=== PATIENT | female | born 1965 | race Caucasian/White ===

== ENCOUNTER → 2018-11-25 20:10 | Outpatient (CLI) | payer OTHER, SELFPAY ==
[2018-11-25 13:53] VITALS: BMI 26.2
== END ==
PROVIDERS: Visit Provider Physician Assistant Medical
DX: J02.9 Acute pharyngitis, unspecified (principal)
CPT/HCPCS: 87081

== ENCOUNTER → 2019-03-01 14:43 | Outpatient (CLI) | payer OTHER, SELFPAY ==
[2019-03-01 14:15] VITALS: BMI 26.2
[2019-03-01 14:45] LABS: Mucous, Urine 0 SEEN /hpf (<or=2+); Squamous Epithelial Cells - UA 0 SEEN /hpf (5-10)
[2019-03-01 16:00] LABS: Color, Urine Brown (Yellow); Glucose, Dipstick Normal (Normal); Ketone-Dipstick 15 mg/dl (Negative); Leukocyte Esterase-Dipstick 500 /ul (Negative); Nitrite-Dipstick Positive (Negative); Occult Blood-Urine 250 /ul (Negative); Protein-Dipstick 100 mg/dl (Negative); Specific Gravity, Urine 1.025 (1.002-1.030); Urine Clarity Cloudy (Clear); Urine Urobilinogen 1 mg/dl (Normal)
[2019-03-01 16:02] LABS: Urine Bilirubin Dipstick 1 mg/dL (Negative)
[2019-03-01 16:12] LABS: Red Blood Cells-Urine > 100 SEEN /hpf (0-5)
[2019-03-01 16:13] LABS: Bacteria 1+ /hpf (None Seen); White Blood Cells 50-100 SEEN /hpf (0-5)
== END ==
PROVIDERS: Visit Provider Physician Assistant
DX: R30.0 Dysuria (principal)
CPT/HCPCS: 81001; 87086; 87088; 87186

== ENCOUNTER → 2019-03-06 13:46 | Outpatient (CLI) | payer OTHER, SELFPAY ==
[2019-03-06 11:02] VITALS: BMI 26.2
[2019-03-06 14:19] LABS: Bacteria 0 SEEN /hpf (None Seen); Mucous, Urine 0 SEEN /hpf (<or=2+)
[2019-03-06 15:06] LABS: Color, Urine Yellow (Yellow); Glucose, Dipstick Normal (Normal); Ketone-Dipstick Negative (Negative); Leukocyte Esterase-Dipstick 25 /ul (Negative); Nitrite-Dipstick Negative (Negative); Occult Blood-Urine 25 /ul (Negative); Protein-Dipstick Negative (Negative); Urine Bilirubin Dipstick Negative (Negative); Urine Clarity Sl. Cloudy (Clear); Urine Urobilinogen Normal (Normal); Urine pH 6.5 (5.0 - 8.0)
[2019-03-06 15:12] LABS: Red Blood Cells-Urine 0-5 SEEN /hpf (0-5); Squamous Epithelial Cells - UA 0-5 SEEN /hpf (5-10); White Blood Cells 0-5 SEEN /hpf (0-5)
== END ==
PROVIDERS: Referring Provider Physician Assistant Surgical; Visit Provider Physician Assistant Surgical
DX: R10.9 Unspecified abdominal pain (principal)
CPT/HCPCS: 81001; 87086

== ENCOUNTER → 2019-10-11 13:02 | Outpatient (CLI) | payer OTHER, SELFPAY ==
[2019-07-30 16:55] VITALS: BMI 26.2
[2019-10-13 14:07] LABS: Age Gdln ACOG Testing 30-65 (.)
[2019-10-14 11:33] LABS: HPV APTIMA, High Risk Negative (Negative)
[2019-10-14 11:38] LABS: HPV Reflexed? YES, CHARGE PATIENT
== END ==
PROVIDERS: Visit Provider Obstetrics & Gynecology
DX: Z12.4 Encounter for screening for malignant neoplasm of cervix (principal)
CPT/HCPCS: 87624; 88175; G0145

== ENCOUNTER → 2019-10-29 16:27 | Outpatient (CLI) | payer OTHER, SELFPAY ==
[2019-07-30 16:55] VITALS: BMI 26.2
--- NOTE | 2019-10-29 16:30 | BI_ITS ---
MAMMOGRAPHY - BILATERAL SCREENING 3-D TOMOSYNTHESIS REASON FOR EXAM: Female, 54 years old. BILAT SCREENING - NO FAM HX - NO PREV SURG''S - PERTINENT HISTORY: No significant family history. TECHNIQUE: 2-D mammograms and 3-D Tomosynthesis of the breast (s) were performed. CAD was performed. COMPARISON: October 12, 2017. FINDINGS: The breast composition is heterogeneously dense that can obscure small breast masses. There is a 5.7 mm round nodule within the upper central right breast position 5.2 cm from the nipple based on the MLO views and position 4.1 cm from the nipple base on the right cc views. The margins appear well-defined except where they are obscured by adjacent fibroglandular tissue. Recommend further evaluation with sonographic characterization. The left breast appears stable and without evidence of malignancy mammographically. There are no suspicious microcalcifications. There are no secondary signs of malignancy. BI/SCREEN MAMM (CAD) W/SO BILAT IMPRESSION: Subcentimeter right breast nodule as above. Sonographic characterization highly recommended. ASSESSMENT CATEGORY: BIRADS Category 0: Incomplete. Need additional imaging evaluation as above. A letter regarding these results will be sent to the patient by the facility within 30 days. FOLLOW UP RECOMMENDATION: Ultrasound Recommended. (I) Approximately 10% of breast cancers are not detected by mammography. A normal mammogram should not delay biopsy of a clinically suspicious abnormality. Electronically Signed: Stanley Dillon MD at 8:42 EST , Service support ,
== END ==
PROVIDERS: Referring Provider Obstetrics & Gynecology; Visit Provider Obstetrics & Gynecology
DX: Z12.31 Encounter for screening mammogram for malignant neoplasm of breast (principal)
CPT/HCPCS: 77063; 77067

== ENCOUNTER → 2019-11-01 10:56 | Outpatient (CLI) | payer OTHER, SELFPAY ==
[2019-07-30 16:55] VITALS: BMI 26.2
--- NOTE | 2019-11-01 11:00 | US_ITS ---
STUDY: ULTRASOUND BREAST - RIGHT REASON FOR EXAM: Female, 54 years old. Abnormal right mammogram. TECHNIQUE: Axial and longitudinal images of the RIGHT breast were performed with a high resolution ultrasound transducer. # OF IMAGES: 46 COMPARISON: None. FINDINGS: RIGHT Breast: The upper outer quadrant and upper inner quadrant and retroareolar regions were sonographically evaluated utilizing various imaging planes. Multiple auto service representative static images and cine loops are submitted for interpretation and documentation. In the retroareolar region there are multiple moderately dilated ducts. No intraductal lesion is identified. No border-forming discrete/focal nodule or mass is identified. No fluid collection. US/Breast Limited Unilateral IMPRESSION: Dilated retroareolar ducts. No intraductal pathology identified. No border-forming discrete nodule or mass. No fluid collection. ASSESSMENT CATEGORY: BIRADS Category 3: Probably Benign - Short-Interval Follow-up Suggested. A letter regarding these results will be sent to the patient by the facility within 30 days. Recommendation: Recommend unilateral, short interval right mammography and right repeat sonography in 3-6 months. Electronically Signed: Stanley Dillon MD at 7:55 EST , Service support ,
== END ==
PROVIDERS: Referring Provider Obstetrics & Gynecology; Visit Provider Obstetrics & Gynecology
DX: R92.8 Other abnormal and inconclusive findings on diagnostic imaging of breast (principal)
CPT/HCPCS: 76642

== ENCOUNTER → 2020-08-28 15:47 | Outpatient (CLI) | payer OTHER, SELFPAY ==
[2020-08-28 14:59] VITALS: BMI 25.0
[2020-08-28 16:51] LABS: Absolute Lymphocyte Count 1.08 X10^3/uL (0.83-4.51); Absolute Neutrophil Count 4.1 X10^3/uL (2.0-7.7); Basophil# 0.05 X10^3/uL; Basophil% 0.9 % (0-1); Eosinophils% 1.7 % (0-5); Hematocrit 42.2 % (37-47); Hemoglobin 13.9 g/dL (12.0-15.0); Lymphocyte # 1.08 X10^3/ul (4.0); Lymphocyte % 18.4 % (19-41); Mean Corp Hgb Conc 32.9 g/dL (32-36); Mean Corpuscular Hgb 29.8 pg (27.0-32.0); Mean Corpuscular Volume 90.6 fL (81-99); Monocyte# 0.54 X10^3/uL; Monocyte% 9.2 % (0-10); NRBC Flagged by Analyzer 0 % (0-5); Neutrophil # 4.08 X10^3/uL (2.7-7.7); Neutrophil % 69.6 % (47-70); Platelet Count 271 K/mm3 (150-450); RBC Distribution Width CV 11.9 % (11.6-14.6); RBC Distribution Width SD 39.3 fl (35.1-43.9); Red Blood Count 4.66 M/mm3 (4.2-5.4); White Blood Count 5.9 K/mm3 (4.4-11.0)
[2020-08-28 17:11] LABS: ALB/GLOB Ratio 1.1 RATIO (0.9-2.4); AST(SGOT) 16 U/L (15-37); Alanine Aminotransfer ALT/SGPT 25 U/L (13-56); Albumin, Serum 3.7 g/dL (3.2-5.0); Alkaline Phosphatase 104 U/L (45-117); Anion Gap 5 (5-15); BUN 16 mg/dL (7-18); BUN/Creat Ratio 20.5 RATIO (10-20); Calcium,Total 9.3 mg/dL (8.5-10.1); Chloride 105 mmol/L (98-107); Cholesterol 193 mg/dL (200); Creatinine, Serum 0.78 mg/dL (0.55-1.02); EST Glomerular Filtration Rate 81 mL/min (>60); Est Glom Filt Rate - Afr Amer 98 mL/min (>60); Globulin 3.5 g/dL (2.2-4.2); Glucose 91 mg/dL (74-106); High Density Lipoprotein 87 mg/dL; Potassium 4.6 mmol/L (3.5-5.1); Protein, Total 7.2 g/dL (6.4-8.2); Sodium Level 140 mmol/L (136-145); Triglycerides 92 mg/dL; Very Low Density Lipoprotein 18 mg/dL (5-40)
== END ==
PROVIDERS: PCP Internal Medicine; Referring Provider Internal Medicine; Visit Provider Internal Medicine
DX: Z00.00 Encounter for general adult medical examination without abnormal findings (principal)
CPT/HCPCS: 36415; 80053; 80061; 85025

== ENCOUNTER → 2020-09-10 09:10 | Outpatient (CLI) | payer OTHER, SELFPAY ==
[2020-08-28 14:59] VITALS: BMI 25.0
--- NOTE | 2020-09-10 09:11 | US_ITS ---
STUDY: ULTRASOUND BREAST - RIGHT REASON FOR EXAM: Female, 55 years old. Pain in the right breast. TECHNIQUE: Axial and longitudinal images of the RIGHT breast were performed with a high resolution ultrasound transducer. # OF IMAGES: 68 COMPARISON: Comparison is made with prior mammogram done earlier in the day as well as prior sonogram of the right breast dated 11/01/2019. FINDINGS: RIGHT Breast: The entire right breast was examined by ultrasound. No sonographic abnormality is seen. US/Breast Complete Unilateral IMPRESSION: No sonographic abnormality is seen. ASSESSMENT CATEGORY: BIRADS Category 1: Negative. A letter regarding these results will be sent to the patient by the facility within 30 days. Electronically Signed: Raudel Avila, at 14:14 EST , Service support ,
--- NOTE | 2020-09-10 09:11 | BI_ITS ---
MAMMOGRAPHY - BILATERAL SCREENING REASON FOR EXAM: Female, 55 years old. Routine annual screening examination. PERTINENT HISTORY: Non-contributory. TECHNIQUE: Digital bilateral breast so (3D mammographic acquisition) in the CC and MLO projections. 2-D mediolateral oblique (MLO) and craniocaudad (CC) views of both breasts were obtained. CAD: Full Field Digital Mammography with Computer Added Detection was performed. COMPARISON: Comparison is made with prior study dated 10/29/2019 and 10/12/2017. FINDINGS: Breast Composition: The breasts are heterogeneously dense, which may obscure small masses. There are no dominant masses or suspicious calcifications. No other significant abnormalities are identified. There has been no significant change since the prior study. BI/SCREEN MAMM (CAD) W/SO BILAT IMPRESSION: Stable bilateral screening mammogram. Yearly follow-up mammogram recommended. (A) ASSESSMENT CATEGORY: BIRADS Category 1: Negative. A letter regarding these results will be sent to the patient by the facility within 30 days. Approximately 10% of breast cancers are not detected by mammography. A normal mammogram should not delay biopsy of a clinically suspicious abnormality. [id number] Electronically Signed: Raudel Avila, at 11:26 EST , Service support ,
== END ==
PROVIDERS: PCP Internal Medicine; Referring Provider Internal Medicine; Visit Provider Internal Medicine
DX: Z12.31 Encounter for screening mammogram for malignant neoplasm of breast (principal); R92.8 Other abnormal and inconclusive findings on diagnostic imaging of breast; N64.4 Mastodynia
CPT/HCPCS: 76641; 77063; 77067

== ENCOUNTER → 2020-12-02 14:04 | Outpatient (CLI) | payer OTHER, SELFPAY ==
[2020-08-28 14:59] VITALS: BMI 25.0
[2020-12-02 13:41] VITALS: BMI 24.7
--- NOTE | 2020-12-02 14:14 | CT_ITS ---
STUDY: LOW DOSE CT LUNG CANCER SCREENING REASON FOR EXAM: Female, 55 years old. Ex smoker x 2 years. 31 year smoker .5-1 pack a day RADIATION DOSAGE (If Supplied By Facility): CTDIvol = ( 2.01 ) mGy, DLP = ( 67.20 ) mGycm TECHNIQUE: No contrast was administered. Low dose technique was utilized (average mAS-38 and kVp 120). 1.25 mm axial source images with a slice interval of 1.25-mm were reconstructed in lung windows. 2.5 mm axial source images with a slice interval of 2.5-mm were reconstructed in lung windows. 5.0 mm axial source images with a slice interval of 5.0-mm were reconstructed in soft tissue windows. Nodule measured using lung windows on PACS and/or independent workstation with automated measurement of minimum and maximum diameter. Nodule measurement reported as average diameter rounded to the nearest whole number. Growth is defined as an increase ins size of greater than 1.5 mm. COMPARISON: None. NODULES: No suspicious nodule is seen. Emphysema: Hyperinflation. Minimal degree of emphysema. Endobronchial lesion: None Aorta: Unremarkable Coronary arteries: Unremarkable Heart: Unremarkable Pulmonary artery: Unremarkable CT/Low Dose CT Lung Screening IMPRESSION: Lung-RADS category 2 - Continue annual screening with LDCT in 12 months. IMPORTANT NOTES FOR USE: ACR Lung-RADS Version 1.0 Assessment Categories Release Date: February 25, 2014 Category: Coded 0-4 bases on nodule(s) with highest degree of suspicion. Negative screen is defined as categories 1 and 2; a positive screen is defined as categories 3 and 4. Category 3 and 4A nodules that are unchanged on interval CT should be coded as category 2, and individuals returned to screening in 12 months. Category 4X: Category 3 or 4 nodules with additional imaging findings that increase the suspicion of lung cancer, such as spiculation, GGN that doubles in size in 1 year, enlarged lymph notes, etc. Category Modifiers: S (significant finding unrelated to lung cancer) and C (prior history of treated lung cancer) may be added to the 0-4 Lung-RADS Electronically Signed: Raudel Avila MD at 14:30 EST , Service support ,
== END ==
PROVIDERS: PCP Internal Medicine; Referring Provider Nurse Practitioner Family; Visit Provider Nurse Practitioner Family
DX: Z12.2 Encounter for screening for malignant neoplasm of respiratory organs (principal); Z87.891 Personal history of nicotine dependence
CPT/HCPCS: 71271

== ENCOUNTER 2021-01-08 15:47 | Outpatient (RCR) | payer OTHER, SELFPAY ==
[2020-12-02 13:41] VITALS: BMI 24.7
[2021-01-08] MEDS: COVID-19 VACC, MRNA(PFIZER)/PF 30 MCG/0.3 ML SYRINGE IM (17:38)
[2021-01-29] MEDS: COVID-19 VACC, MRNA(PFIZER)/PF 30 MCG/0.3 ML SYRINGE IM (17:37)
== END 2021-04-07 23:59 ==
LOC: IMMUN 15:47
PROVIDERS: PCP Internal Medicine; Visit Provider Family Medicine
DX: Z23 Encounter for immunization (principal)
CPT/HCPCS: 0001A; 0002A; 91300

== ENCOUNTER → 2021-06-16 | Outpatient (CLI) | payer OTHER, SELFPAY ==
[2021-06-16 14:17] VITALS: BMI 24.7
[2021-06-16 17:59] LABS: Probe Check PASS; Specimen Processing Control PASS
== END | disposition home or self-care (01) ==
LOC: LABSPEC 14:33
PROVIDERS: PCP Internal Medicine; Visit Provider Nurse Practitioner Family
DX: J06.9 Acute upper respiratory infection, unspecified (principal)
CPT/HCPCS: 87635; U0005; U0003

== ENCOUNTER → 2022-03-23 | Outpatient (CLI) | payer OTHER, SELFPAY ==
--- NOTE | 2022-03-23 13:17 | CT_ITS ---
EXAM: CT CHEST, LUNG CANCER SCREENING WITHOUT INTRAVENOUS CONTRAST CLINICAL INDICATION: lung cancer screening -- 30 pk yr hx; asymptomatic; former smoker TECHNIQUE: Helically acquired images were obtained of the chest without intravenous contrast using low dose (LDCT) lung cancer screening protocol. This CT exam was performed using one or more of the following dose reduction techniques: automated exposure control, adjustment of the mA and/or kV according to patient size, and/or use of iterative reconstruction technique. This report was created using [employer] report generation technology. COMPARISON: 12/02/2020 FINDINGS: LUNGS AND PLEURAL SPACES: Diffuse centrilobular pulmonary emphysema again noted. No evidence of lung mass or suspicious pulmonary nodule. 4 mm nodule along the minor fissure again seen consistent with intrapulmonary lymph node. No pleural effusion or thickening. No pneumothorax. HEART: Unremarkable. Heart size is normal. No pericardial effusion. No significant coronary artery calcifications. MEDIASTINUM: Unremarkable. No mediastinal or hilar adenopathy. Esophagus is unremarkable. No hiatal hernia. THYROID: Unremarkable. No thyroid lesions. BONES/JOINTS: Unremarkable. No suspicious lytic or blastic abnormality. VASCULATURE: Unremarkable. Thoracic aorta is non-dilated. LYMPH NODES: Unremarkable. No enlarged lymph nodes. CT/Low Dose CT Lung Screening IMPRESSION: 1. Diffuse centrilobular pulmonary emphysema. 2. No evidence of lung mass or suspicious pulmonary nodule. 3. ACR Lung CT Screening Reporting T Data System (Lung-RADS) score: 2S - Benign Appearance or Behavior. Additional clinically significant or potentially clinically significant findings are described. Recommend continued annual screening with low-dose CT (LDCT) in 12 months. Electronically Signed: Alexis Johansen MD at 9:58 EDT ,
== END | disposition home or self-care (01) ==
LOC: CT 12:40
PROVIDERS: PCP Internal Medicine; Visit Provider Nurse Practitioner Family
DX: Z12.2 Encounter for screening for malignant neoplasm of respiratory organs (principal); Z87.891 Personal history of nicotine dependence
CPT/HCPCS: 71271

== ENCOUNTER → 2023-07-02 | Outpatient (CLI) | payer OTHER, SELFPAY ==
--- NOTE | 2023-07-02 07:35 | MRI_ITS ---
STUDY: MRI LEFT WRIST WITHOUT CONTRAST REASON FOR EXAM: Female, 58 years old. pain and hard calcification at the radial styloid TECHNIQUE: Standardized fat and water weighted pulse sequences were obtained in all 3 orthogonal planes. COMPARISON: Left hand and wrist x-rays dated March 29, 2023 FINDINGS: A small to moderate-sized 5 mm intraosseous cyst is present in the central to radial aspect of the lunate. No joint effusion is present. No visualized fractures or evidence of avascular necrosis. A small joint effusion is present in the distal radial ulnar joint. No visualized tear is more degeneration of the triangle fibrocartilage complex. Normal visualized distal radius and ulna. Normal distal radioulnar Articulation (DRUJ). Normal triangular fibrocartilaginous complex (TFCC). Normal remaining carpal bones. Normal radiocarpal, intercarpal and midcarpal articulations. Normal pisotriquetral articulation. Normal visualized interosseous scapholunate ligament. Normal visualized dorsal (extrinsic) ligaments. Normal visualized volar (extrinsic) ligaments. Normal extensor tendons. Minimal tenosynovitis is present in the first extensor compartment. Normal flexor tendons. Normal carpal tunnel with a normal median nerve. Normal carpometacarpal articulation of the thumb. Normal second through fifth carpometacarpal articulations. Normal visualized metacarpal bones. There is no demonstrated soft tissue abnormality. MRI/Upper Ext Joint Only(Routine) IMPRESSION: 1. A small to moderate-sized 5 mm intraosseous cyst is present in the central to radial aspect of the lunate. No joint effusion is present. No visualized fractures or evidence of avascular necrosis. 2. Minimal tenosynovitis of the first extensor compartment. 3. A small joint effusion is present in the distal radial ulnar joint. No visualized tear is more degeneration of the triangle fibrocartilage complex. Electronically Signed: French Tejada MD at 16:03 EDT Reading Location ID and State: [facility] / [place] , Service support ,
== END | disposition home or self-care (01) ==
LOC: MRI 07:20
PROVIDERS: PCP Internal Medicine; Referring Provider Orthopaedic Surgery Sports Medicine; Visit Provider Orthopaedic Surgery Sports Medicine
DX: M65.4 Radial styloid tenosynovitis [de Quervain] (principal); S66.912A Strain of unspecified muscle, fascia and tendon at wrist and hand level, left hand, initial encounter; X58.XXXA Exposure to other specified factors, initial encounter
CPT/HCPCS: 73221

== ENCOUNTER → 2024-01-10 | Outpatient (CLI) | payer OTHER, SELFPAY ==
--- NOTE | 2024-01-10 15:29 | CT_ITS ---
STUDY: LOW DOSE CT LUNG CANCER SCREENING REASON FOR EXAM: Female, 58 years old. FORMER SMOKER. Patient smoked half a pack per day for 40 years. RADIATION DOSAGE (If Supplied By Facility): CTDIvol = ( 2.01 ) mGy, DLP = ( 67.96 ) mGycm TECHNIQUE: No contrast was administered. Low dose technique was utilized (average mAS-38 and kVp 120). 1.25 mm axial source images with a slice interval of 1.25-mm were reconstructed in lung windows. 2.5 mm axial source images with a slice interval of 2.5-mm were reconstructed in lung windows. 5.0 mm axial source images with a slice interval of 5.0-mm were reconstructed in soft tissue windows. COMPARISON: Comparison is made with prior study March 23, 2022. NODULES: There is a 3.4 mm partially calcified granuloma in the posterior aspect of the right upper lobe as seen on axial image #123. Emphysema: Hyperinflation. Emphysematous changes. Mild linear scarring at the lung bases. Endobronchial lesion: None Aorta: Minimal plaque calcification of the aortic arch. CORONARY ARTERIES: Coronary artery calcification is not seen. Heart: Unremarkable Pulmonary artery: Unremarkable Mediastinal nodes: Unremarkable Other chest and abdominal findings: CT/Low Dose CT Lung Screening IMPRESSION: Lung-RADS category 2 - Continue annual screening with LDCT in 12 months. IMPORTANT NOTES FOR USE: ACR Lung-RADS Version 1.1 Assessment Categories Release Date: 2018 Category: Coded 0-4 bases on nodule(s) with highest degree of suspicion. Negative screen is defined as categories 1 and 2; a positive screen is defined as categories 3 and 4. Category 3 and 4A nodules that are unchanged on interval CT should be coded as category 2, and individuals returned to screening in 12 months. Category 4X: Category 3 or 4 nodules with additional imaging findings that increase the suspicion of lung cancer, such as spiculation, GGN that doubles in size in 1 year, enlarged lymph notes, etc. Category Modifiers: S (significant finding unrelated to lung cancer) Electronically Signed: Raudel Avila MD at 8:48 EDT ,
--- OUTSIDE RECORDS SUMMARY | 2024-01-11 02:17 | XMS RPT_ITS | CCD ---
Author Name Unknown Address [address] [facility] [address] [place] [address] Organization [facility] Care Team Providers Care Hand Salter Name Role Phone Unavailable Primary Care Provider Unavailabl e Problems Problem Classification Problem Date Documented Da te Episodic/Chronic Residual codes; unclassified (1 source) Pain; Translations: [Pain, unspecified] Episodic Results Test Name Value Interpretation Reference Range Facil ity Vital Signs Date Time Vital Sign Value Performing Clinician Faci lity 08-09-2022 19:32-0400 Body temperature 98.4 [degF] Ivonne Bustillos APRN.MANAGER MAIL Work Phone: [facility] 08-09-2022 19:32-0400 Body weight 57.15 kg Ivonne Bustillos APRN.MANAGER MAIL Work Phone: [facility] 08-09-2022 19:32-0400 Diastolic blood pressure 80 mm[Hg] Ivonne Bustillos APRN.MANAGER MAIL Work Phone: [facility] 08-09-2022 19:32-0400 Heart rate 76 /min Ivonne Bustillos APRN.MANAGER MAIL Work Phone: [facility] 08-09-2022 19:32-0400 Respiratory rate 18 /min Ivonne Bustillos APRN.MANAGER MAIL Work Phone: [facility] 08-09-2022 19:32-0400 SaO2% (BldA) [Mass fraction] 100 % Ivonne Bustillos APRN.MANAGER MAIL Work Phone: [facility] 08-09-2022 19:32-0400 Systolic blood pressure 124 mm[Hg] Ivonne Bustillos APRN.MANAGER MAIL Work Phone: [facility] Encounters Encounter Date Encounter Type Care Provider Facility Start: 08-09-2022 End: 08-09-2022 Patient encounter procedure Ivonne Bustillos STACIE.MANAGER MAIL Work Phone: [facility] Plan of Treatment Date Care Activity Detail Author Start: 07-01-2022 Influenza vaccination INFLUENZA (#1) [facility] Start: 10-31-2021 DEPRESSION ASSESSMENT DEPRESSION ASS ESSMENT [facility] Start: 03-26-2021 COVID-19 VACCINE (3 - Booster for Pfizer series) COVID-19 VACCINE (3 - Booster for Pfizer series) [facility] Start: 2013 SHINGRIX VACCINE (1 of 2) SHINGRIX V ACCINE (1 of 2) [facility] Start: 2008 COLOGUARD (FIT-DNA) COLOGUARD (FIT-D NA) [facility] Start: 2008 Colonoscopy COLONOSCOPY [facility] Start: 2008 COLORECTAL CANCER SCREENING COLORECTAL CANCER SCREENING [facility] Start: [address] COLONOGRAPHY [facility] Start: 2008 DIABETES SCREEN DIABETES SCREEN [facility] Start: 2008 FECAL OCCULT BLOOD FECAL OCCULT BLOO D [facility] Start: 2008 LIPID SCREEN LIPID SCREEN [facility] Start: 2008 SIGMOIDOSCOPY SIGMOIDOSCOPY [facility] Start: 2003 Mammography MAMMOGRAM [facility] Start: 1993 HPV TESTING HPV TESTING [facility] Start: 1984 PAP TESTING PAP TESTING [facility] Start: 1982 Urine microalbumin profile DTAP,TDAP ,TD (1 - Tdap) [facility] Start: 1981 HEPATITIS C SCREENING HEPATITIS C SC REENING [facility] Start: 1981 HIV SCREENING HIV SCREENING [facility] Payers Date Payer Category Payer Unknown [facility] [id number] 2021-Present [phone] [address] [place] [address] [facility] [id number] Social History Date Type Detail Facility Start: 10-10-2022 Tobacco smoking stat us LAIS Never smoked tobacco [facility] Start: 08-09-2022 Tobacco use and exposure Smoke less tobacco non-user [facility] Start: 1965 Sex Assigned At Not on file C [facility] History of Present illness Narrative 08-09-2022 Ivonne JamesAPRN.MANAGER MAIL - 08/09/2022 7:32 PM EDT Note Date & Type Note Facility 08-09-2022 History of Presen t illness Narrative Images from the original note were not included. Subjective Patient came in with complaints of left foot pain. Patient dropped a heavy glass bottle on it from the top of her fridge. Patient says it was about a week ago and is still hurting. Patient's noticed significant amount of swelling and cannot bend the last 3 toes on the left foot. Patient denies any numbness or loss of feeling. The history is provided by the patient. No speech and language assistant was used. Foot Trauma Review of Systems Constitutional: Negative. Skin: Negative. Objective Physical Exam Constitutional: Appearance: Normal appearance. Pulmonary: Effort: Pulmonary effort is normal. Musculoskeletal: Feet: Feet: Comments: Edema noted in the blue area marked above. Small scab areas red areas marked above Neurological: Mental Status: She is alert. No past medical history on file. No past surgical history on file. ALLERGIES Patient has no known allergies. MEDICATIONS No prescriptions on file. No family history on file. Social History Tobacco Use Smoking status: Never Smokeless tobacco: Never ASSESSMENT/PLAN: 1. Pain - ICD9: 780.96, ICD10: R52 - XR ANKLE GENERAL 3V AP/LAT/OBL LEFT - XR FOOT GENERAL 3V AP/LAT/OBL LEFT * * * * Physician Interpretation * * * * EXAMINATION: XR FOOT 3V AP/LAT/OBL LT HISTORY: Foot pain especially metatarsals. Trauma. TECHNIQUE: XR FOOT 3V AP/LAT/OBL LT Laterality: LEFT Number of different views (projections): 3 M: XB_1 COMPARISON: There are no prior relevant examinations available for comparison within the [facility] Imaging Archives. RESULT: Standing frontal radiographs of the bilateral feet with oblique and lateral weightbearing views of the left foot demonstrate a oblique fracture involving the distal aspect of the left fourth proximal phalanx. There is no intra-articular extension. There is also a concomitant intra-articular fracture involving the middle phalanx left fourth toe. No associated dislocation or other acute bony process. IMPRESSION IMPRESSION: Nondisplaced fractures proximal middle phalanx left fourth toe. Parts Department Supervisor: ALEX Transcribe Date/Time: Aug 09 2022 7:56P Dictated by : TINO FERGUSON MD Patient was placed in a surgical boot for comfort. Patient will rest elevate and ice and follow-up with primary care provider. Patient was okay with this care plan. Ivonne Bustillos APRN.ZAK documented in this encounter [facility] Evaluation note Note Date & Type Note Facility documented in this encounter [facility] Reason for referral (narrative) Diagnostic Procedure Only (Urgent) - Pending Review Note Date & Type Note Facility Referral ID Status Reason Start Date Expiration Date Visits Requested Visits Authorized [id number] Pending Review Auto-Generat ed Referral 09/08/2023 1 1 [facility] Additional Source Comments Source Comments (unrecognize d section and content) In the event this informatio n is protected by the Federal Confidentiality of Alcohol and Drug Abuse Patient Records regulations: The Federal rules restrict any use of the information to criminally investigate or prosecute any alcohol or drug abuse patient.[facility] Reason for Visit (unrecogniz ed section and content) FOR RECORDS PERTAINING TO PATIENTS WHO ARE OR HAVE BEEN ENROLLED IN A CHEMICAL DEPENDENCY/SUBSTANCEABUSE PROGRAM, SOME INFORMATION MAY BE OMITTED. This clinical summary was aggregated from multiple sources. Caution should be exercised in using it in the provision of clinical care. This summary normalizes information from multiple sources, and as a consequence, information in this document may materially change the coding, format and clinical context of patient data. In addition, data may be omitted in some cases. CLINICAL DECISIONS SHOULD BE BASED ON THE PRIMARY CLINICAL RECORDS. [facility]. provides no warranty or guarantee of the accuracy or completeness of information in this document.
== END | disposition home or self-care (01) ==
LOC: CT 15:28
PROVIDERS: PCP Internal Medicine; Referring Provider Nurse Practitioner Family; Visit Provider Nurse Practitioner Family
DX: Z12.2 Encounter for screening for malignant neoplasm of respiratory organs (principal); Z87.891 Personal history of nicotine dependence
CPT/HCPCS: 71271

== ENCOUNTER 2024-03-02 16:47 | Emergency (ER) | payer OTHER, SELFPAY ==
[2024-03-02 16:48] VITALS: BP 110/74; PULSE 85; RESP 18; TEMP 36.4; O2SAT 98; BMI 23.0
[2024-03-02] MEDS: Lidocaine 1% (20 ml mdv) 20 ML Vial 10 ML INFILT (17:18)
[2024-03-02] MEDS: Diphth,Pertuss(Acell),Tet Vac 0.5 ML Vial IM (17:19)
--- NOTE | 2024-03-02 17:22 | EX.ED.UPPERE ---
HPI <PHOENIX Wilkerson - Last Filed: 03/02/24 19:12> History of Present Illness Chief Complaint: Laceration Narrative Narrative: Patient presenting today with laceration to her right palm that she got this afternoon. She reports that she was trying to kill a spider while using a broom stick, however the end of the broomstick was broke off and the metal cut her hand. Tetanus is not up-to-date. She is right-handed. PFSH <PHOENIX Wilkerson - Last Filed: 03/02/24 19:12> PFSH Medical History Chest pain Diarrhea Encounter for education Encounter for screening for malignant neoplasm of lung in current smoker with 30 pack year history or greater Fatigue History of tobacco use Mallet finger SOB (shortness of breath) Strain of left wrist Tenosynovitis, de Quervain Toe fracture Wrist pain Home Medications NK 01/12/24 [History Last Taken Unknown] Allergy/AdvReac Type Severity Reaction Status Date / Time No Known Allergies Allergy Verified 03/02/24 16:47 Family History Father Non-Hodgkins lymphoma Mother Lung cancer Surgical History H/O dilation and curettage H/O tubal ligation Social History household members: spouse and children housing: house current occupational status: employed current occupation: self Smoking Status: Former smoker quit date: 08/10/19 pack-years: 20 Tobacco: How many years used: 31 Electronic Cigarette Use: not used how long ago did patient quit smokin.5 years second hand exposure: Yes quit status: quit date established alcohol intake: never substance use type: does not use what type of physical activity do you participate in: none seatbelt use: always do you feel safe at home: Yes ROS <PHOENIX Wilkerson - Last Filed: 03/02/24 19:12> ROS ED Constitutional Constitutional ED: Denies chills or fever(s) Cardiovascular Cardiovascular: Denies chest pain Respiratory/Chest Respiratory/Chest: Denies cough or dyspnea Gastrointestinal Gastrointestinal: Denies abdominal pain, nausea or vomiting Musculoskeletal Musculoskeletal: Denies arthralgias or myalgias Integumentary Reports laceration Neurologic Neurologic: Denies paresthesias EXAM <PHOENIX Wilkerson - Last Filed: 03/02/24 19:12> Physical Exam Const Vital Signs: 03/02/24 16:48 Temperature 97.6 F L Temperature Source Temporal Pulse Rate 85 Respiratory Rate 18 Blood Pressure 110/74 Blood Pressure Mean 86 Pulse Ox 98 Oxygen Delivery Method Room Air Positive well nourished, well developed and no apparent distress General Appearance ED: well developed HEENT Reports normocephalic and head/scalp atraumatic Mouth ED: Yes moist mucous membranes normal Eyes PERRL and EOMs intact bilaterally Neck full ROM and supple Chest Wall inspection of chest normal Resp normal respiratory effort and clear to auscultation bilaterally Cardio regular rate and regular rhythm Back/Spine normal ROM and normal to inspection Extremity full ROM Extremity Narrative: 2.5 cm linear full-thickness laceration to the right palm. Neuro oriented x3, CN's II-XII intact bilaterally, moves all extremities, no focal motor deficits and no sensory deficits noted Sensorium / Orientation: awake and alert Psych mental status grossly normal and thought process normal MDM <PHOENIX Wilkerson - Last Filed: 03/02/24 19:12> [facility] Narrative Medical decision making narrative: Patient presenting today with a 2.5 cm linear laceration to the mid right palm that she got this evening. Tetanus will be updated. Laceration will be copiously irrigated with normal saline, cleaned with chlorhexidine, and repaired with sutures. Wound was then bandaged with bacitracin ointment. Wound care instructions discussed. She tolerated procedure well. She is to have sutures out in 7 to 10 days. She will be discharged home in stable condition and is comfortable with plan. <Darryl Allison MD - Last Filed: 03/02/24 20:54> [facility] Narrative Medical decision making narrative: Patient presenting today with a 2.5 cm linear laceration to the mid right palm that she got this evening. Tetanus will be updated. Laceration will be copiously irrigated with normal saline, cleaned with chlorhexidine, and repaired with sutures. Wound was then bandaged with bacitracin ointment. Wound care instructions discussed. She tolerated procedure well. She is to have sutures out in 7 to 10 days. She will be discharged home in stable condition and is comfortable with plan. Dr. Allison: I have personally performed a face to face assessment of the patient and have reviewed the GARRICK Note. I performed a substantive portion of the visit including all aspects of the following. My robles findings include: History is laceration to palm of right hand after using metal broom without plastic protector on the handle. Patient was trying to kill a spider. Exam is afebrile. Vital signs noted. Positive laceration 2.5 cm normal hand, flap-like, no active bleeding. Neurovascular intact distally with good capillary refills and full range of motion of fingers and able to oppose thumb. Medical Decision Making: Laceration repair. Discharge. Other additions or changes: [None] Procedures <PHOENIX Wilkerson - Last Filed: 03/02/24 19:12> Lacerations Laceration: Length: 0.98 in Depth: Sub Q Shape: Linear Prep: Chlorhexadine Laceration repair: Irrigated, Lidocaine, Skin sutures and Wound explored Number of Sutures/Artur: 4 Suture Information: Ethilon, Simple and 5-0 Discharge Plan Triage Chief Complaint: Laceration ED Midlevel Provider: Alcira Mcgregor ED Provider: Darryl Allison Dx/Rx/DC Orders Clinical Impression: Hand laceration Instructions: ED Laceration Extremity Prescriptions: No Action NK Primary Care Provider: Haven Wilson Referrals: Haven Wilson MD [Primary Care Provider] - 10 Day for suture removal Activity Restrictions/Additional Instructions: Please have sutures removed in 7 to 10 days. Return or follow-up with PCP for any signs of infection. Disposition Disposition: Home, Self Care Discharge Date/Time: 03/02/24 18:00
[2024-03-02 18:00] VITALS: BP 124/81; PULSE 68; RESP 12; TEMP 36.9; O2SAT 100
== END 2024-03-02 18:00 | disposition home or self-care (01) ==
PROVIDERS: Emergency Provider Emergency Medicine; PCP Internal Medicine; Visit Provider Emergency Medicine
DX: S61.411A Laceration without foreign body of right hand, initial encounter (principal); Z87.891 Personal history of nicotine dependence; Z23 Encounter for immunization; X58.XXXA Exposure to other specified factors, initial encounter
CPT/HCPCS: 12001; 90471; 90715; 99282

== ENCOUNTER → 2024-08-08 | Outpatient (CLI) | payer OTHER, SELFPAY | END | disposition home or self-care (01) | LOC: LABSPEC 12:21 | PROVIDERS: PCP Internal Medicine; Referring Provider Physician Assistant Surgical; Visit Provider Physician Assistant Surgical | DX: N39.0 Urinary tract infection, site not specified (principal) | CPT/HCPCS: 87086 ==

== ENCOUNTER → 2024-08-15 | Outpatient (CLI) | payer OTHER, SELFPAY ==
[2024-08-15 14:32] LABS: Red Blood Cells-Urine 0 SEEN /hpf (0-5)
[2024-08-15 17:41] LABS: Absolute Lymphocyte Count 1.24 X10^3/uL (0.83-4.51); Absolute Neutrophil Count 7.7 X10^3/uL (2.0-7.7); Basophil# 0.07 X10^3/uL; Basophil% 0.7 % (0-1); Eosinophil# 0.13 X10^3/uL; Eosinophils% 1.3 % (0-5); Hematocrit 44.3 % (37-47); Hemoglobin 14.8 g/dL (12.0-15.0); Lymphocyte # 1.24 X10^3/ul (0.83-4.51); Lymphocyte % 12.6 % (19-41); Mean Corp Hgb Conc 33.4 g/dL (32-36); Mean Corpuscular Hgb 30.6 pg (27.0-32.0); Mean Corpuscular Volume 91.5 fL (81-99); Mean Platelet Vol. 9.2 fl (6.2-12.0); Monocyte# 0.67 X10^3/uL; Monocyte% 6.8 % (0-10); NRBC Flagged by Analyzer 0 % (0-5); Platelet Count 324 K/mm3 (150-450); RBC Distribution Width CV 12.4 % (11.6-14.6); RBC Distribution Width SD 41.8 fl (35.1-43.9); Red Blood Count 4.84 M/mm3 (4.2-5.4); White Blood Count 9.9 K/mm3 (4.4-11.0)
[2024-08-15 17:44] LABS: Color, Urine Yellow (Yellow); Glucose, Dipstick Normal (Normal); Ketone-Dipstick Negative (Negative); Leukocyte Esterase-Dipstick Negative /ul (Negative); Nitrite-Dipstick Negative (Negative); Occult Blood-Urine 50 /ul (Negative); Protein-Dipstick 15 mg/dl (Negative); Urine Bilirubin Dipstick Negative (Negative); Urine Clarity Sl. Cloudy (Clear); Urine Urobilinogen Normal (Normal)
[2024-08-15 17:48] LABS: International Normalized Ratio 1.1; Prothrombin Time (Protime)PT. 14.2 SECONDS (11.7-14.9)
[2024-08-15 17:49] LABS: Calcium Oxalate Crystals Ur 1+ /hpf (<or=2+)
[2024-08-15 17:50] LABS: Bacteria RARE /hpf (None Seen); Renal Epithelial Cells 0-5 SEEN /hpf (0-5); Squamous Epithelial Cells - UA 0-5 SEEN /hpf (5-10)
[2024-08-15 17:51] LABS: Mucous, Urine 1+ /hpf (<or=2+); White Blood Cells 0-5 SEEN /hpf (0-5)
[2024-08-15 18:14] LABS: ALB/GLOB Ratio 1.2 RATIO (0.9-2.4); AST(SGOT) 21 U/L (15-37); Alanine Aminotransfer ALT/SGPT 24 U/L (13-56); Alkaline Phosphatase 104 U/L (45-117); Anion Gap 7 (5-15); BUN 13 mg/dL (7-18); BUN/Creat Ratio 15.4 RATIO (10-20); Calcium,Total 9.5 mg/dL (8.5-10.1); Chloride 107 mmol/L (98-107); Creatinine, Serum 0.84 mg/dL (0.55-1.02); EST Glomerular Filtration Rate 73 mL/min (>60); Est Glom Filt Rate - Afr Amer 88 mL/min (>60); Globulin 3.2 g/dL (2.2-4.2); Glucose 92 mg/dL (74-106); Potassium 4.6 mmol/L (3.5-5.1); Protein, Total 7.2 g/dL (6.4-8.2); Sodium Level 140 mmol/L (136-145); Total Bilirubin < 0.10 mg/dL (0.20-1.00)
== END | disposition home or self-care (01) ==
LOC: BIMLAB 14:29
PROVIDERS: PCP Internal Medicine; Referring Provider Internal Medicine; Visit Provider Internal Medicine
DX: R31.9 Hematuria, unspecified (principal); R10.2 Pelvic and perineal pain; K92.1 Melena
CPT/HCPCS: 36415; 80053; 81001; 85025; 85610

== ENCOUNTER → 2024-08-29 | Outpatient (CLI) | payer OTHER, SELFPAY ==
[2024-09-06 08:12] LABS: HPV APTIMA, High Risk Negative (Negative)
== END | disposition home or self-care (01) ==
LOC: LABSPEC 14:31
PROVIDERS: PCP Internal Medicine; Referring Provider Nurse Practitioner Family; Visit Provider Nurse Practitioner Family
DX: Z12.4 Encounter for screening for malignant neoplasm of cervix (principal); N89.8 Other specified noninflammatory disorders of vagina
CPT/HCPCS: 87070; 87205; 87624; 88175; G0145

== ENCOUNTER → 2024-09-03 | Outpatient (CLI) | payer OTHER, SELFPAY ==
--- NOTE | 2024-09-03 13:14 | CT_ITS ---
STUDY: CT ABDOMEN AND PELVIS WITH CONTRAST REASON FOR EXAM: Female, 59 years old. Pelvic Pain RADIATION DOSAGE (If Supplied By Facility): CTDIvol = ( 7.4 ) mGy, DLP = ( 371.74 ) mGycm TECHNIQUE: Transaxial images were obtained from the dome of the diaphragm to the symphysis pubis with oral contrast. Oral and amp; IV Readi-CAT and amp; 100mL Isovue-300 was administered. Sagittal and coronal images were reconstructed. Individualized dose optimization techniques were used for this CT. COMPARISON: None. FINDINGS: The visualized lung bases are unremarkable. The visualized portions of the heart are within normal limits. Normal liver. Normal gallbladder and extrahepatic biliary system. Normal spleen. Normal pancreas. Normal bilateral adrenal glands. Normal right kidney. Normal left kidney. Normal visualized stomach. Normal small intestine. Normal colon. The appendix is visualized and appears normal. Normal abdominal aorta. Normal inferior vena cava. Normal retroperitoneum. Normal urinary bladder. Normal abdominal wall. Normal osseous structures. CT/Abdomen/Pelvis WITH Contrast IMPRESSION: Normal enhanced CT of the abdomen and pelvis. Electronically Signed: Christopher Dai MD at 14:08 [facility] ,
== END | disposition home or self-care (01) ==
LOC: CT 13:13
PROVIDERS: PCP Internal Medicine; Referring Provider Internal Medicine; Visit Provider Internal Medicine
DX: R10.2 Pelvic and perineal pain (principal); K92.1 Melena; R31.9 Hematuria, unspecified
CPT/HCPCS: 74177; Q9967

== ENCOUNTER → 2024-09-05 | Outpatient (CLI) | payer OTHER, SELFPAY | END | disposition home or self-care (01) | LOC: US 16:18 | PROVIDERS: PCP Internal Medicine; Referring Provider Nurse Practitioner Family; Visit Provider Nurse Practitioner Family | DX: R10.2 Pelvic and perineal pain (principal); K62.5 Hemorrhage of anus and rectum; N93.9 Abnormal uterine and vaginal bleeding, unspecified | CPT/HCPCS: 76830; 76856 ==

== ENCOUNTER 2024-09-12 08:24 | Day surgery (SDC) | payer OTHER, SELFPAY ==
[2024-09-12] VITALS (7 sets, daily range): BP systolic 88–122; BP diastolic 62–91; PULSE 56–87; RESP 12–16; TEMP 36.2–36.6; O2SAT 97–99; BMI 20.5
--- NOTE | 2024-09-12 08:30 | PCM.HP.BLA ---
History and Physical Date of Admission: 09/12/24 Date of Service: 08/28/24 MR#: [id number] Acct: [id number] Name: CHUY LAIRD Rep #: [id number] : 1965 Provider: Dr. Gayle Schumacher MD Age/Sex: 59/F Location: [facility] Status: Signed Intake Vital Signs 08/15/2413:46 08/28/2410:10 Height 5 ft 5.1 in 5 ft 5 in Weight: 126 lb 8 oz 128 lb 8 oz BMI 20.9 21.4 BP 124/76 H 108/73 Blood Pressure Location Lt brachial Rt brachial Position Sitting Sitting Respiration 16 18 Pulse 58 L 71 Pulse Source Monitor Monitor Temp 98.6 F 97.2 F L Temp Source Temporal Temporal Pulse Oximetry (%) 99 100 Oxygen Delivery Method room air room air Intake Visit Reasons: BLOOD IN STOOL Chief Complaint: blood in stool Is patient in pain?: No Allergies No Known Allergies Allergy (Verified 08/28/24 10:11) Medications ?Medication ?Instructions ?Recorded ?Confirmed ?Type NK 08/15/24 08/28/24 History PFSH Medical History (Updated 08/28/24 @ 10:[address] Gayle Schumacher MD) Abdominal pain Colon cancer screening Vaginal bleeding Pelvic pain Hematochezia Laceration of right hand Wrist pain Toe fracture Tenosynovitis, de Quervain Strain of left wrist Encounter for screening for malignant neoplasm of lung in current smoker with 30 pack year history or greater History of tobacco use Encounter for education Mallet finger Diarrhea Chest pain Fatigue SOB (shortness of breath) Surgical History H/O tubal ligation H/O dilation and curettage Family History Father Non-Hodgkins lymphomaMother Lung cancer Social History household members: spouse and children housing: house current occupational status: employed current occupation: self Smoking Status: Former smoker quit date: 08/10/19 pack-years: 20 Tobacco: How many years used: 31 Electronic Cigarette Use: not used how long ago did patient quit smokin.5 years second hand exposure: Yes quit status: quit date established alcohol intake: never substance use type: does not use what type of physical activity do you participate in: none seatbelt use: always do you feel safe at home: Yes HPI HPI HPI: 59-year-old female presents due to blood per rectum. Patient initially had hematuria with some clots diagnosed with a UTI at the [facility]. The following day patient states she had a bowel movement with no urination and there was a pink tinge to the toilet water. Patient states she has bowel movements every day denies any other episodes of bleeding. Patient denies any family history of colon cancer. Patient never had previous colonoscopy. Patient does state that maybe 1 to 2 months ago she did have a large bowel movement not that it was constipated felt like she had some pulling up some pelvic area muscles. Patient also states that she does have kind of a constant pressure since the hematuria in the perineum at 6/10. Patient is also seen HVAC DESIGN ENGINEER tomorrow. ROS General General: Yes fatigue; No weight change, appetite, colon cancer, breast cancer or weakness HEENT HEENT: No difficulty swallowing, eye injury, eye surgery, swollen glands or hoarseness Endo Endocrine: No thyroid disease, diabetes mellitus, thyroid cancer, Hair loss, heat intolerance or cold intolerance Skin Skin: No rash or changing moles Musc Musculoskeletal: No back problems, arthritis, rheumatoid arthritis, gout or joint pain Cardio Cardiovascular: No murmur, pacemaker, heart disease, atrial fibrillation, high blood pressure, heart attack, heart stent, palpitations, shortness of breat with exertion or chest pain Psych Psychiatric: No depression, anxiety or hearing voices Resp Respiratory: No shortness of breath, No sleep apnea, No cough, No COPD, No asthma, No emphysema and No wheezing Gastro Gastrointestinal: Yes abdominal pain, No nausea or vomiting, No diarrhea, No constipation, Yes blood in stool, No acid reflux, Yes hemorrhoids, No ulcers, No gallbladder problem and No black,tarry stools Moose Hematologic: No blood thinners, No blood disorders, No bleeding, No anemia and No blood clots Neuro Neurologic: No numbness, No tingling and No weakness Exam Const General: cooperative, healthy appearing, comfortable and no acute distress HENMT Head: normocephalic and atraumatic Neck Neck: supple Resp Effort & Inspection: normal respiratory effort Cardio Rate: regular rate GI Inspection: non-distended Palpation: soft and nontender Rectal Exam: deferred Skin General: no rashes or lesions noted Neuro General: CN's II-XI intact bilaterally Extrem General: normal to inspection Psych Mental Status: mental status grossly normal Attitude: cooperative Assessment and Plan Assessment and Plan (1) Blood per rectum: Status: Acute Plan Patient was having hematuria diagnosed with a UTI however states she did go to the restroom and only had a bowel movement did not urinate and there was a pinkish tinge to the toilet water. I have discussed the above with the patient. I have offered the patient colonoscopy for evaluation. I have explained the risks/benefits of the procedure and described the procedure. I have discussed the risks with the patient, including but not limited to: infection, bleeding, perforation of the GI tract requiring emergency surgery, inability to complete the procedure, injury to any internal organs, complications of anesthesia, etc. - the patient understands and agrees to proceed. I have answered all the patient's questions to the patient's satisfaction and the patient has no further questions. The patient has been given instructions for the colon cleansing preparation. 1 day of clears MiraLAX Dulcolax prep Gayle Schumacher M.D. Pager: [phone] [facility] [address] [place] [address], [address] [place] [address] Office: [phone] Coding Level of Care Code Off vis,new,level 3 Diagnoses Blood per rectum K62.5 08/28/24 1051 <Electronically signed by Gayle Schumacher MD> Date Gayle Schumacher MD
--- NOTE | 2024-09-12 08:41 | PCM.PRE.AN2 ---
ASA Classification* ASA Classification ASA Classification: 2 Assessment & Plan Anesthesia* Anesthesia Assessment Anesthesia Assessment: Discussed sedation and/or anesthesia options, risks, benefits, and alternatives with patient/parents/legal guardian/POA. Questions invited. The patient/parents/legal guardian/POA seems to understand and agrees to proceed with anesthesia plan. Reviewed the physical assessment, medical history, allergy history and patient home medications list prior to surgery/procedure/anesthetic and documented any changes. Performed airway and anesthesia risk assessments. Anesthesia Type Anesthesia Type: MAC Anesthesia Focused Assessment* Airway Assessment Mouth opens: >3 cm Mallampati Score: II Focused Labs Anesthesia Preop lab: CBC WBC 9.9 K/mm3 (4.4-11.0) 08/15/24 14:30 RBC 4.84 M/mm3 (4.2-5.4) 08/15/24 14:30 Hgb 14.8 g/dL (12.0-15.0) 08/15/24 14:30 Hct 44.3 % (37-47) 08/15/24 14:30 Plt Count 324 K/mm3 (150-450) 08/15/24 14:30 CHEMISTRY Potassium 4.6 mmol/L (3.5-5.1) 08/15/24 14:30 Sodium 140 mmol/L (136-145) 08/15/24 14:30 BUN 13 mg/dL (7-18) 08/15/24 14:30 Creatinine 0.84 mg/dL (0.55-1.02) 08/15/24 14:30 Glucose 92 mg/dL (74-106) 08/15/24 14:30 TSH 1.59 uIU/mL (0.358-3.74) 12/03/13 15:06 COAG PT 14.2 SECONDS (11.7-14.9) 08/15/24 14:30 Pre-Assessment Diagnosis/Proposed Procedure Planned Operative Procedure(s): CSCOPE Anesthesia History Anesthesia History - supervisor travel information center: Anesthesia History - supervisor travel information center Hx Hospitalization No 09/07/24 13:11 Any Problems With Anesthesia Yes: NAUSEA AND VOMITING 09/07/24 13:11 Cholinesterase deficiency No 09/07/24 13:11 You/Your Family Experience No 09/07/24 13:11 fever (hyperthermia) with Relationship Recent Exposure to Contagious Yes: RESP. FLU 01/21/20 14:08 Disease Does patient have nerve No 09/07/24 13:11 stimulator Patient instructed to have device shut off --Does patient have Pacemaker or ICD? When Was Last Pacemaker Check QUESTION #4 FULL TEXT: You/Your Family Experience fever (hyperthermia) with Anesthesia Last Oral Intake Last Oral intake: Last Oral Intake NPO since Meds taken in AM with sips of water? Meds patient instructed to take am of surgery PONV PONV - supervisor travel information center: PONV - supervisor travel information center Female Yes 09/07/24 13:11 HX of Motion Sickness No 09/07/24 13:11 HX of N/V After Surgery Yes 09/07/24 13:11 Non-Smoker Yes 09/07/24 13:11 Duration of Surgery greater No 09/07/24 13:11 than 60 minutes Number of Risk Factors 3 09/07/24 13:11 PONV Score Moderate Risk 09/07/24 13:11 Height & Weight Height & Weight: Anesthesia: Height & Weight Height 5 ft 5 in 08/29/24 11:22 Respiratory Assessment Respiratory Assessment - supervisor travel information center: Respiratory Tract Infection Hx - supervisor travel information center Hx Respiratory Tract Infection No 09/07/24 13:11 STOP Sleep Apnea STOP Sleep Apnea - supervisor travel information center: STOP Sleep Apnea - supervisor travel information center Hx Hypertension No 09/07/24 13:11 Hx Sleep Apnea No 09/07/24 13:11 CPAP No 09/07/24 13:11 BIPAP No 09/07/24 13:11 Do you snore loudly (louder Yes 09/07/24 13:11 than talking or can be heard Do you often feel tired/ No 09/07/24 13:11 fatigued/ sleepy during daytime? Has anyone observed you stop No 09/07/24 13:11 breathing during sleep? STOP Results Negative 09/07/24 13:11 QUESTION #5 FULL TEXT : Do you snore loudly (louder than talking or can be heard through closed doors)? Tobacco Use History Tobacco Use History - supervisor travel information center: Tobacco Use History - supervisor travel information center Tobacco Use Smoking Status Former smoker 09/07/24 13:11 Hx Tobacco Use No 09/07/24 13:11 Years Smoking Packs Smoked per Day Smoking Cessation Date was Yes - quit smoking within 15 09/07/24 13:11 within the last 15 years years Hx Smoking Cessation Date 10/31/18 09/07/24 13:11 Hx Smoking Cessation No 09/07/24 13:11 Counseling Hematologic Medial History Hematologic Hx - supervisor travel information center: Hematologic Medical Hx - certified travel counselor Hx of Blood Transfusion No 09/07/24 13:11 Hx of Transfusion in last 3 No 09/07/24 13:11 Months Date of Last Transfusion (if within last 3 months) Ever experience any problems No 09/07/24 13:11 with transfusion(s)? Specify any problems Hx of Preganancy in last 3 No 09/07/24 13:11 Months Nurse Filling Out Transfusion DSCHRIBER 09/07/24 13:11 & Questions: Date: 09/07/24 09/07/24 13:11 Time: 13:12 09/07/24 13:11 Patient unable to answer at this time (ie. confused, unrespo /Reproduction History /Reproductive History - supervisor travel information center: /Reproductive Hx- supervisor travel information center Hx Now No 09/07/24 13:11 Gestational Age (in weeks): EDC: Hx Hx Para Hx Section SAB No 09/07/24 13:11 PFSH Medical History Wears contact lenses Post-menopausal Restless legs Heartburn Former smoker Leg cramps Abdominal pain Colon cancer screening Vaginal bleeding Pelvic pain Hematochezia Laceration of right hand Tenosynovitis, de Quervain Strain of left wrist Encounter for screening for malignant neoplasm of lung in current smoker with 30 pack year history or greater History of tobacco use Encounter for education Diarrhea Fatigue Home Medications ?Medication ?Instructions ?Recorded ?Last Taken ?Type NK 08/15/24 Unknown History Allergy/AdvReac Type Severity Reaction Status Date / Time No Known Allergies Allergy Verified 09/07/24 13:10 Family History Father Non-Hodgkins lymphoma Mother Lung cancer Surgical History History of prior ablation treatment H/O tubal ligation H/O dilation and curettage Social History household members: spouse and children housing: house current occupational status: employed current occupation: self Smoking Status: Former smoker quit date: 08/10/19 pack-years: 20 Tobacco: How many years used: 31 Electronic Cigarette Use: not used how long ago did patient quit smokin.5 years second hand exposure: Yes quit status: quit date established alcohol intake: never substance use type: does not use what type of physical activity do you participate in: none seatbelt use: always do you feel safe at home: Yes Review of Systems (Anesthesia) ROS Narrative System reviewed and no additional complaints, except as documented.
--- NOTE | 2024-09-12 09:45 | COLBX_PTH ---
PATIENT: CHUY LAIRD LOC: EN U#:[id number] AGE/SX: 59/F ROOM: RE09/12/[address]: Dr. Gayle Schumacher MD : 1965 BED: DIS: 09/12/2024 SPEC #: [id number] RECD: 09/12/24 11:36 STATUS: WHIT MEIER #: [id number] TAVO: 09/12/24 09:[address]: Gayle Schumacher DEPT: SURGICAL PATHOLOGY RECD BY: Wade Maloney ENTERED: 09/12/24 11:55 SP TYPE: COLON BX OTHR DR: Dr. Haven Wilson MD Tissues: Rectum, NOS Procedures: Surgery Specimen Level IV HEADER OPERATION: Colonoscopy with polypectomy and biopsy PRE-OP DIAGNOSIS: Blood per rectum TISSUE SUBMITTED: Rectal polyp x 6 and biopsy MICROSCOPIC DIAGNOSIS Rectal polyp x6, polypectomy and biopsy: Fragments of hyperplastic polyp. Fragments of fecal material. SJ.mr 09/13/2024 MICROSCOPIC DESCRIPTION Slides are reviewed. GROSS DESCRIPTION Received in fixative is one container labeled with the patient's name and designated Rectal polyp x6 and biopsy. The specimen consists of multiple irregular fragments of light rob soft tissue that in aggregate measure 1.7 x 0.6 x 0.2 cm. The specimen is totally submitted in one cassette. 09/12/2024 TC:1 CPT:72110
--- NOTE | 2024-09-12 09:45 | PCM.POST.ANE ---
Anesthesia: Postop Eval I Current Vital Signs Temperature: 97.2 F Pulse Rate: 57 Blood Pressure: 109/77 Respiratory Rate: 16 Pulse Ox: 99 Oxygen Delivery Method: Room Air Assessment Airway patent: Yes Spontaneous unlabored respirations: Yes Mental status: Asleep nausea: No Vomiting: No Anesthesia Complication: No Fluid Hydration Crystalloid volume administer (ml): 55 Total IV fluid infused: 55 Progress Note Anesthesia document: Postop Eval 1 completed: Yes
--- NOTE | 2024-09-12 09:47 | OP.COLON_ITS ---
Patient Name: Mabel Mayorga Procedure Date: 09/12/2024 9:04 AM Date of : 1965 Age: 59 Procedure: Colonoscopy Indications: Rectal bleeding Providers: Gayle Schumacher MD Referring MD: Haven Wilson MD Medicines: Monitored Anesthesia Care Patient Profile: This is a 59 year old female. Last Colonoscopy: none. The patient's first colonoscopy is today. Complications: No immediate complications. Procedure: Pre-Anesthesia Assessment: - Prior to the procedure, a History and Physical was performed, and patient medications and allergies were reviewed. The patient's tolerance of previous anesthesia was also reviewed. The risks and benefits of the procedure and the sedation options and risks were discussed with the patient. All questions were answered, and informed consent was obtained. Prior Anticoagulants: The patient has taken no anticoagulant or antiplatelet agents. ASA Grade Assessment: Per anesthesia. After reviewing the risks and benefits, the patient was deemed in satisfactory condition to undergo the procedure. After I obtained informed consent, the scope was passed under direct vision. Throughout the procedure, the patient's blood pressure, pulse, and oxygen saturations were monitored continuously. The pediatric colonoscope was introduced through the anus and advanced to the cecum, identified by the appendiceal orifice, ileocecal valve and palpation. The colonoscopy was performed without difficulty. The patient tolerated the procedure well. The quality of the bowel preparation was good. Scope In: 9:13:45 AM Scope Withdrawal Time 0 hours 14 minutes 36 seconds Scope Out: 9:38:33 AM Total Procedure Duration Time 0 hours 24 minutes 48 seconds Findings: Hemorrhoids were found on perianal exam. Non-bleeding internal hemorrhoids were found. The hemorrhoids were Grade I (internal hemorrhoids that do not prolapse). Three semi-pedunculated polyps were found in the rectum. The polyps were less than 5 mm in size. These polyps were removed with a hot snare. Resection and retrieval were complete. Three sessile polyps were found in the rectum. The polyps were less than 5 mm in size. These polyps were removed with a cold biopsy forceps. Resection and retrieval were complete. The exam was otherwise without abnormality. Impression: - Hemorrhoids found on perianal exam. - Non-bleeding internal hemorrhoids. - Three less than 5 mm polyps in the rectum, removed with a hot snare. Resected and retrieved. - Three less than 5 mm polyps in the rectum, removed with a cold biopsy forceps. Resected and retrieved. - The examination was otherwise normal. Recommendation: - Discharge patient to home. - Resume previous diet. - Continue present medications. - Await pathology results. - Repeat colonoscopy in 5 years for surveillance based on pathology results. Procedure Code(s): --- Professional --- 77668, Colonoscopy, flexible; with removal of tumor(s), polyp(s), or other lesion(s) by snare technique 30978, 59, Colonoscopy, flexible; with biopsy, single or multiple Diagnosis Code(s): --- Professional --- K64.0, First degree hemorrhoids D12.8, Benign neoplasm of rectum K62.5, Hemorrhage of anus and rectum CPT copyright 202 [employer]. All rights reserved. The codes documented in this report are preliminary and upon secret code expert review may be revised to meet current compliance requirements. MD Gayle Javed MD 09/12/2024 9:47:19 AM This report has been signed electronically. Number of Addenda: 0 Note Initiated On: 09/12/2024 9:04 AM
--- NOTE | 2024-09-12 09:47 | OP.CCLET_ITS ---
09/12/2024 Haven Wilson MD [address] [place] [address] [place] [address] Re : Colonoscopy procedure for Mabel Mayorga Dear Dr. Wilson This procedure was performed on Thursday, September 12, 2024. My impressions and recommendations are as follows: Impressions : - Hemorrhoids found on perianal exam. - Non-bleeding internal hemorrhoids. - Three less than 5 mm polyps in the rectum, removed with a hot snare. Resected and retrieved. - Three less than 5 mm polyps in the rectum, removed with a cold biopsy forceps. Resected and retrieved. - The examination was otherwise normal. Recommendations : - Discharge patient to home. - Resume previous diet. - Continue present medications. - Await pathology results. - Repeat colonoscopy in 5 years for surveillance based on pathology results. My findings are described in the full procedure note, which is enclosed. If I can be of further assistance, please feel free to contact me at Doctor phone number(s): , Work: . Sincerely, MD Gayle Javed MD 09/12/2024 9:47:19 AM This report has been signed electronically.
--- NOTE | 2024-09-12 14:34 | PCM.POSTANE2 ---
Anesthesia Postop Eval I Sum Postop Eval Completion status Anesthesia document: Postop Eval 1 completed: Yes Anesthesia Postop Eval I Summary Anesthesia Postop Eval I Summary: Anesthesia Postop Eval I: Assessment Summary Airway patent Yes 09/12/24 09:46 [email or web address] Spontaneous unlabored Yes 09/12/24 09:46 [email or web address] respirations Mental status Asleep 09/12/24 09:46 [email or web address] nausea No 09/12/24 09:46 [email or web address] Vomiting No 09/12/24 09:46 [email or web address] Anesthesia Postop Eval I: Fluid Summary Crystalloid volume administer 55 09/12/24 09:46 [email or web address] (ml) Colloids volume administered ( ml) Blood Product volume administered (ml) Total IV fluid infused 55 09/12/24 09:46 [email or web address] Anesthesia Postop Eval I: Summary Notes Anesthesia Complication No 09/12/24 09:46 [email or web address] Anesthesia Complication Comment: Post-operative progress note Anesthesia: Postop Eval II Evaluation Mental status: Awake Pain Level: 0 nausea: No Vomiting: No
== END 2024-09-12 10:29 | disposition home or self-care (01) ==
LOC: EN 08:24 → AC 08:25
PROVIDERS: PCP Internal Medicine; Referring Provider Internal Medicine; Visit Provider Surgery
PROC: 0DJD8ZZ Inspection of Lower Intestinal Tract, Via Natural or Artificial Opening Endoscopic (ICD-10-PCS; CPT 45378; principal; 2024-09-12 09:40)
DX: K62.5 Hemorrhage of anus and rectum (principal); K64.0 First degree hemorrhoids; K62.1 Rectal polyp; Z87.891 Personal history of nicotine dependence
CPT/HCPCS: 45380; 45385; 88305; A4216; J2405

== ENCOUNTER → 2024-09-25 | Outpatient (CLI) | payer OTHER, SELFPAY ==
--- NOTE | 2024-09-25 | CYSPIN_PTH ---
PATIENT: CHUY LAIRD LOC: [facility] U#:[id number] AGE/SX: 59/F ROOM: RE09/25/[address]: Dr. Kristie Alarcon MD : 1965 BED: DIS: 09/25/2024 SPEC #: [id number] RECD: 09/26/24 12:13 STATUS: WHIT MEIER #: [id number] TAVO: 09/25/24 00:[address]: Kristie Alarcon DEPT: CYTOLOGY RECD BY: Flo Nolan ENTERED: 09/26/24 12:14 SP TYPE: CYSPIN FL OTHR DR: Dr. Haven Wilson MD Tissues: Urine Procedures: Pap Stain (control) Special Stain Group II Cytospin Fluid HEADER OPERATION: Not noted PRE-OP DIAGNOSIS: Gross hematuria TISSUE SUBMITTED: Urine for cytology DIAGNOSIS CYTOLOGY Urine for cytology (cytospin): Negative for high grade urothelial carcinoma (Angelique category system II). See comment. AM.mr 09/26/2024 COMMENT The Angelique System for urine cytology diagnostic categorization was used in the evaluation of this case. CYTOLOGY STUDY Slides are reviewed. CYTOLOGY GROSS Received is 30 ml of light-yellow cloudy fluid labeled with the patient's name and and designated per the requisition as urine. Submitted for cytology preparation. Mr 09/26/2024 TC:5 CPT: 17062
[2024-09-25 16:25] LABS: Cytology, Body Fluid / CSF SEE PATHOLOGY REPORT
== END | disposition home or self-care (01) ==
LOC: LABSPEC 15:27
PROVIDERS: PCP Internal Medicine; Referring Provider Urology; Visit Provider Urology
DX: R31.0 Gross hematuria (principal)
CPT/HCPCS: 88108; 88313

== ENCOUNTER → 2025-05-07 | Outpatient (CLI) | payer OTHER, SELFPAY ==
--- NOTE | 2025-05-07 14:25 | CT_ITS ---
PROCEDURE: LOW DOSE CT LUNG SCREENING 05/07/2025 REASON FOR EXAM: LUNG CANCER SCREENING Former smoker. Patient has smoked for 20 years. TECHNIQUE: LOW DOSE CT LUNG SCREENING Coronal and Sagittal reconstruction series were provided. One or more dose reduction techniques were used (e.g., Automated exposure control, adjustment of the mA and/or kV according to patient size, use of iterative reconstruction technique). REFERENCE LINK: [facility] Lung-RADS RADIATION DOSE SUMMARY: CTDlvol: 2.01 mGy DLP: 66.7 mGycm COMPARISON: None FINDINGS: PULMONARY NODULES: (Only nodules >3mm are reported) Nodules described below are on series 1 unless otherwise specified. Pulmonary Nodules: No suspicious pulmonary nodules are seen. Hardware:None Lymph Nodes:Small benign-appearing mediastinal lymph nodes. Heart and Vasculature:The heart is nonenlarged. Coronary Artery Calcifications: Absent Lungs and Airways: Mild emphysematous changes are present. Pleura:No pleural effusion Upper Abdomen:Unremarkable. Bones:Degenerative changes of the thoracic spine. CT/Low Dose CT Lung Screening IMPRESSION: No suspicious nodules are seen. Mild emphysematous changes. Coronary artery calcification (CAC) is is absent Lung-RADS Category: 2 BENIGN (BASED ON IMAGING FEATURES OR INDOLENT BEHAVIOR). RECOMMEND 12-MONTH SCREENING LDCT. Other Significant Findings: Reading Location: [place] [id number]
== END | disposition home or self-care (01) ==
LOC: CT 14:24
PROVIDERS: PCP Internal Medicine; Referring Provider Nurse Practitioner Family; Visit Provider Nurse Practitioner Family
DX: Z12.2 Encounter for screening for malignant neoplasm of respiratory organs (principal); Z87.891 Personal history of nicotine dependence
CPT/HCPCS: 71271